=== PATIENT | male | born 1955 | race Caucasian/White ===

== ENCOUNTER 2018-04-07 01:01 | Observation (INO) ==
[2018-04-07 02:45] LABS: BASO# 0.07 X1000 (0.0-0.2); BASO% 0.7 % (0.0-0.8); EOS# 0.32 X1000 (0.0-0.7); EOS% 3.2 % (0.0-10.0); HEMATOCRIT 42.9 % (42.0-52.0); HEMOGLOBIN 14.1 g/dL (14.0-18.0); IMM GRAN# 0.06 X1000 (0.0-0.04); IMM GRAN% 0.6 % (0.0-0.5); LYMPH# 2.22 X1000 (1.2-3.4); LYMPH% 21.9 % (20.5-51.1); MCH 29.1 PG (27-31); MCHC 32.9 g/dL (33-37); MCV 88.6 FL (81-99); MONO# 0.74 X1000 (0.11-0.59); MONO% 7.3 % (1.7-9.3); MPV 9.3 FL (7.4-10.4); NEUT# 6.71 X1000 (1.4-6.5); NEUT% 66.3 % (42.2-75.2); PLT 245 X1000 (130-400); RBC 4.84 XMIL (4.7-6.1); RDW 13.7 % (11.5-14.5); WBC 10.12 X1000 (4.8-10.8)
[2018-04-07 03:07] LABS: AGAP 15; BUN 15 mg/dL (8-22); CALCIUM 8.4 mg/dL (8.8-10.2); CHLORIDE 102 mmol/L (98-107); COSMO 287; CREATININE 0.7 mg/dL (0.7-1.2); ESTIMATED GFR > 60; GLUCOSE 213 mg/dL (70-104); POTASSIUM 4.1 mmol/L (3.5-5.1); SODIUM 140 mmol/L (136-145); TCO2 23 mmol/L (25-35)
[2018-04-07] MEDS ORDERED: ASPIRIN PO ONE (03:21)
--- NOTE | 2018-04-07 03:23 | PROVIDER DOCUMENTATION ---
HPI-Neurological Disorder - General Chief Complaint: Stroke-Like Symptoms Stated Complaint: LEFT HAND/ARM "LIKE IT BELONGS TO SOMEONE ELSE" Time Seen by Provider: 04/07/18 01:40 Source: patient, family Allergies/Adverse Reactions: Patient Allergies Allergy/AdvReac Type Severity Reaction Status Date / Time No Known Allergies Allergy Verified 04/07/18 03:36 - History of Present Illness-Neuro Nature of Presenting Problem: 62 y/o M presents to the ED complaining of left arm weakness. States about 2 hours prior to arrival in the ED, at 2300, he noted that he has some mild incoordination with his left hand and then noted that it was difficult to lift normal items with his hand. States since the onset this has improved but has not resolved. No weakness or numbness in his leg or face, no gait changes. Takes 81mg ASA daily. No chest pain no headache. Review of Systems - Adult - REVIEW OF SYSTEMS - ADULT Constitutional: reports: no symptoms reported Eyes: reports: no symptoms reported Ears, Nose, Mouth & Throat: reports: no symptoms reported Cardiovascular: reports: no symptoms reported Respiratory: reports: no symptoms reported Gastrointestinal: reports: no symptoms reported Genitourinary: reports: no symptoms reported Musculoskeletal: reports: no symptoms reported Integumentary: reports: no symptoms reported Neurological: reports: other (weakness in left arm with incoordination of left arm) Psychiatric: reports: no symptoms reported Endocrine: reports: no symptoms reported Hematologic/Lymphatic: reports: no symptoms reported Allergic/Immunologic: reports: no symptoms reported All Other Systems: Reviewed and Negative Past History - Adult - PAST MEDICAL HISTORY-ADULT Review of Records: reports: Old Records Reviewed, Nursing Assessment Review, Medications Reviewed, Social history reviewed & non-contributory. Physical Exam- Neurological - Physical Exam-Neuro Initial Vital Signs Reviewed: Yes General Appearance: appears well, alert, no apparent distress Eye Exam: bilateral eye: normal inspection, PERRL, EOMI HENMT: normocephalic/atraumatic, moist mucous membranes, normal ENT inspection Head Injury: no evidence of injury Neck: non-tender, full range of motion, supple Respiratory: chest non-tender, lungs clear, normal breath sounds Cardiovascular: normal peripheral pulses, regular rate, rhythm, no edema, no JVD Abdominal Exam: non tender, soft Extremity: normal range of motion, non-tender, normal inspection, 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, grossly normal, abnormal cerebellar tests Integumentary: normal color, normal turgor, warm/dry Psych/Mental Status: normal mood/affect, normal thought content, normal thought process, oriented x 3 Progress - PLAN OF CARE/RESULTS Progress/Plan/Lab Results: Vital Signs - 8 hr 04/07/18 01:15 04/07/18 03:32 Temperature 97.8 F 98.3 F Pulse Rate 102 H 90 Respiratory Rate 20 16 Blood Pressure 142/60 104/98 O2 Sat by Pulse Oximetry 97 96 Laboratory Results - last 24 hr 04/07/18 04/07/18 04/07/18 02:31 02:31 02:31 WBC 10.12 RBC 4.84 Hgb 14.1 Hct 42.9 MCV 88.6 MCH 29.1 MCHC 32.9 L RDW Std Deviation 13.7 Plt Count 245 MPV 9.3 Immature Gran % (Auto) 0.6 H Neut % (Auto) 66.3 Lymph % (Auto) 21.9 Dickey % (Auto) 7.3 Eos % (Auto) 3.2 Baso % (Auto) 0.7 Immature Gran # (Auto) 0.06 H Neut # (Auto) 6.71 H Lymph # (Auto) 2.22 Dickey # (Auto) 0.74 H Eos # (Auto) 0.32 Baso # (Auto) 0.07 Sodium 140 Potassium 4.1 Chloride 102 Carbon Dioxide 23 L Anion Gap 15 BUN 15 Creatinine 0.7 Estimated GFR/1.73 m2 > 60 BUN/Creatinine Ratio 21 Glucose 213 H Calculated Osmolality 287 Calcium 8.4 L Troponin T < 0.010 Orders Category Date Time Status IV Insertion ORDERED Care 04/07/18 01:59 Active Nursing- Obtain EKG once Care 04/07/18 01:[address] HEAD W/O CONTRAST [CT] Stat Exams 04/07/18 01:20 Taken BASIC METABOLIC PANEL [CHEM] Stat Lab 04/07/18 02:31 Completed CBC WITH DIFF [HEME] Stat Lab 04/07/18 02:31 Completed TROPONIN T Stat Lab 04/07/18 02:31 Completed Aspirin Med 04/07/18 03:21 Discontinued 324 mg PO NOW ONE EKG [EKG] Stat Ther 04/07/18 01:59 Ordered left arm weakness and incoordination. improving since onset and only with slight pronator drift on exam. As improving and very mild deficit not a TPA candidate. will further evaluate for causes including but not limited to CVA, TIA, arrythmia, electrolyte imbalance Result Diagrams: 04/07/18 02:31 04/07/18 02:31 - REASSESSMENT Reassessment #1 Status: other (Feeling well, continued very slight pronator drift. improved as compared to initial exam. Likely CVA, as improving not a TPA candidate. ASA given and will admit. Discussed case with Dr. Shah who will see and admit pt.) - EKG 1 Time of EKG reading by physician:: 03:26 EKG Read and Signed by:: Liset Lu EKG Interpretation (*Must complete 3 of following elements*): Normal (Sinus Rhythm, rate 91, no acute st changes, normal axis and intervals) - CT/MRI 1 CT Study: Head (Per radiologist read: "no acute intracranial hemorrhage or process identified") Departure - Departure Date of Disposition Decision: 04/07/18 Time of Disposition Decision: 03:45 DIAGNOSIS: CVA (cerebral vascular accident) Qualifiers: CVA mechanism: unspecified Qualified Code(s): I63.9 - Cerebral infarction, unspecified Disposition: ADMITTED INPATIENT 09 Certified Medical Emergency: Emergent Condition: Fair Referrals and Follow-Ups: Celio Patel MD [Primary Care Provider] - - Critical Care Note This patient required my direct & personal management of CC.: No Attestation - Physician/ DANIELA Attestation Patient care was provided by Advanced Practice Provider:: No The physician spent face to face time with patient:: Yes Advanced Practice Provider documentation review:: Supervising physician onsite and consulted in the evaluation and care of this patient. The physician did have a face to face encounter with the patient.
[2018-04-07 04:30] LABS: HEMOGLOBIN A1C 8.1 % (4.8-6.0)
[2018-04-07 04:33] LABS: PROTIME 11.7 Seconds (11.0-16.0); PTT 28.2 Seconds (22.3-41.8)
[2018-04-07 05:22] LABS: INR 0.8
[2018-04-07] MEDS ORDERED: TYLENOL PO PRN (06:21)
[2018-04-07] MEDS ORDERED: ZOFRAN IV PRN (06:21)
[2018-04-07] MEDS ORDERED: DUONEB (A & A) INH PRN (06:24)
--- NOTE | 2018-04-07 06:32 | Diag Imaging Result Doc PS360 ---
CT HEAD W/O CONTRAST - 04/07/2018 INDICATION: stroke like symptoms. COMPARISON: None FINDINGS: The ventricles and sulci are normal in size and contour. No intracranial mass or hemorrhage. The skull is intact. The sinuses, mastoids, and middle ears are clear. IMPRESSION: Negative exam. This exam was performed using automated exposure control, adjustment of mA or kV according to patient size, and/or use of iterative reconstruction technique Electronically signed by Steven Graham 04/07/2018 6:30 AM
--- NOTE | 2018-04-07 07:03 | EKG Report ---
Test Performed on : 04/07/2018 03:26:35 AM Test Reason : SDA Blood Pressure : / mmHG Vent. Rate : 091 BPM Atrial Rate : 091 BPM P-R Int : 154 ms QRS Dur : 096 ms QT Int : 358 ms P-R-T Axes : 000 061 034 degrees QTc Int : 440 ms Normal sinus rhythm. Normal ECG No previous ECGs available Unconfirmed Result
--- NOTE | 2018-04-07 09:14 | Diag Imaging Result Doc PS360 ---
EXAM: CHEST-2 VIEWS HISTORY: Wheezing TECHNIQUE: Chest two views COMPARISON: None. FINDINGS: The lungs are well expanded. The heart is not enlarged. The vessels are not distended. There are no infiltrates. No pleural effusions. Prominent callus to a prior right eighth rib fracture. IMPRESSION: No acute abnormality. Electronically signed by Francis Henriquez 04/07/2018 9:12 AM
--- NOTE | 2018-04-07 09:21 | Diag Imaging Result Doc PS360 ---
EXAM: MRA BRAIN W/O CONTRAST HISTORY: TIA TECHNIQUE: MR angiography of the brain. MIP images obtained. COMPARISON: None. FINDINGS: There is normal flow within each distal internal carotid artery. Normal filling of the anterior and middle cerebral arteries. No occlusion or stenosis. Normal flow in the basilar artery with filling of both posterior cerebral arteries. No occlusion or stenosis. No aneurysm. IMPRESSION: Normal MR angiography of the [place]. Electronically signed by Francis Henriquez 04/07/2018 9:18 AM
--- NOTE | 2018-04-07 09:22 | Diag Imaging Result Doc PS360 ---
MRI BRAIN W/WO CONTRAST - 04/07/2018 INDICATION: TIA COMPARISON: None FINDINGS: There are numerous areas of abnormal restricted diffusion involving the right cerebral hemisphere, most notably in the cortex of the right frontal and parietal lobes but also some of the posterior deep cerebral white matter. No intracranial mass or hemorrhage. No abnormal contrast enhancement. No significant microvascular disease. IMPRESSION: Multifocal acute infarctions in the right cerebral hemisphere. These may be embolic or due to low flow situation, as the foci of abnormality are relatively distant and small in size. Electronically signed by Steven Graham 04/07/2018 9:20 AM
--- NOTE | 2018-04-07 09:46 | Diag Imaging Result Doc PS360 ---
MRA NECK W/CONT - 04/07/2018 INDICATION: TIA TECHNIQUE: Contrast-enhanced MR angiogram of the neck COMPARISON: None FINDINGS: There is moderate narrowing of both proximal internal carotid arteries. This is narrowed by about 40% on the right and 60% on the left. The common carotid arteries and carotid bulbs appear grossly patent. The vertebral basilar system is patent. No aneurysm or stenosis. IMPRESSION: Moderate stenosis of both proximal internal carotid arteries, left greater than right. Electronically signed by Steven Graham 04/07/2018 9:44 AM
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
[2018-04-07] MEDS: HUMALOG SUBQ SCH ×4 (11:11→21:04)
[2018-04-07] MEDS: NICODERM PATCH TD SCH (11:12)
[2018-04-07] MEDS: FISH OIL CONCENTRATE PO SCH (11:13)
--- NOTE | 2018-04-07 15:34 | CONSULTATION ---
DATE OF CONSULTATION: 04/07/2018 HISTORY OF PRESENT ILLNESS: Mr. Garcia is 62 years old, and he has had a stroke. Risk factors include hypertension, dyslipidemia, diabetes mellitus, peripheral vascular disease, and he continues to smoke cigarettes. He reports noticing an odd feeling in the left arm, clumsiness, and eventually he noted davy weakness in the left arm. This was approximately 24 hours ago. Symptoms were stable through the rest of the day and he went to bed. This morning he seems a little bit better. By noon time today, he was nearly back to normal. He did not notice left leg weakness, slurred speech, trouble swallowing. He saw "dots of light" in his vision and believes this was bilateral and something that has happened before the stroke yesterday. He did not notice focal loss of visual field, diplopia, other specific neurologic deficit. He had a little bit of headache, which has now resolved. He reports not missing any of his medicine doses. DIAGNOSTIC DATA: Workup here includes a brain MRI done with and without contrast showing evidence of multifocal acute small ischemic infarctions in the right hemisphere , mostly frontal and parietal, but some posterior. Brain MRA was unremarkable. Cervical MRA shows moderate stenosis in the internal carotid bilaterally, a little bit more on the left than the right. He has been afebrile here. Heart rate has ranged from 80s to 90s. Systolic blood pressures have ranged from 98 to 167. Blood sugars have been in the low 200s, and A1c was 8.1% . PHYSICAL EXAMINATION: On exam, Mr. Garcia is awake, alert, attentive, appropriate, and pleasant. Speech is not dysarthric. Language function is intact on bedside testing. Memory is good. Head and neck are unremarkable. Visual simon are full tested grossly by confrontational finger counting. Extraocular movements are full. Facial motility is good bilaterally. Gag is intact. Tongue is midline. He can hear. Shoulder shrug is good bilaterally. He has left hemiparesis grading 4+/5 at the deltoid and wrist extensor. I do not see definite weakness in the left leg. Tone is slightly increased in the left arm. He did better with right finger-to- nose than with the left. He did rapid alternating movements a little better with the right hand than the left. He reports equal pinprick appreciation over the palms. There was no extinction of simultaneously applied stimuli over the left or right. He has right [id number] amputation. He has a stocking pattern of sensory loss in the left leg. Proprioception is slightly diminished at the left great toe MTP joint. I did not test his gait. Left ankle reflex is absent and left knee reflex is 1+. Plantar response is silent on the left. IMPRESSION AND PLAN: Minimal left hemiparesis with relatively pure motor deficit. This is consistent with subcortical nondominant right hemisphere infarction as demonstrated on imaging. The multifocal nature raises question of embolic events, possibly cardiac, but also possibly right carotid source. I do not have any urgent suggestion now from a neurologic standpoint. I would continue following blood pressure and treat that cautiously if it becomes more elevated. I would continue aggressive management of blood sugar and lipids. I would continue aspirin and statin. If not done recently as outpatient, echocardiogram would be reasonable. I have strongly encouraged him to quit smoking cigarettes and to be aggressive with management of his risk factors. Thanks for asking Neurology to see Mr. Garcia. cc: MD JAM Cantu III
--- NOTE | 2018-04-07 16:37 | ECHO REPORT ---
ORDER DATE: 04/07/2018 INTERPRETING PHYSICIAN: Dr. Archer REQUESTING PHYSICIAN: CLINICAL INDICATIONS: This is a 62-year-old male with transient ischemic attack, hypertension. M-MODE MEASUREMENTS: Right ventricle: cm. Left ventricle end diastole: 4.9 cm. Left ventricle end systole: 3.1 cm. Posterior wall: 1.0 cm. Interventricular septum: 1.1 cm. Left atrium: 4.0 cm. Aortic root: 3.2 cm. SUMMARY OF 2-DIMENSIONAL IMAGIN. Left ventricular systolic function is normal. Ejection fraction is estimated at 55% to 60%. No wall motion abnormality noted. 2. The right ventricle appears to be normal. 3. Aortic valve shows sclerosis of the cusps without stenosis. 4. Mitral valve looks normal. Color flow mapping is unremarkable. 5. The aortic valve shows no regurgitation, either. 6. Pulmonic valve looks normal. Color flow mapping is unremarkable. 7. Tricuspid valve shows trace regurgitation. 8. Pulmonary pressure is normal. 9. Inferior vena cava is not dilated. 10.There is no pericardial effusion, mass or thrombus. CONCLUSIONS: In summary, this study shows: 1. Normal left ventricular systolic function. 2. Sclerosis of the aortic valve without any stenosis. 3. Unremarkable mitral, tricuspid, and pulmonic valves. 4. Diastolic function appears to be normal based on normal pulmonary venous flow, normal velocity of the mitral annulus up to 9 cm, and normal E/A ratio. Clinical correlation is recommended. cc: MD Avinash Murphy MD
--- NOTE | 2018-04-07 18:19 | Carotid Study ---
DATE: 04/07/2018 PROCEDURE: Carotid duplex imaging. REFERRING PHYSICIAN: Avinash Ron MD. INTERPRETING PHYSICIAN: Renaldo Riley MD. TECH: [place]. INDICATIONS: Carotid bruit. OBSERVED DATA RIGHT LEFT Brachial Blood Pressure Carotid Pulse Bruits: Carotid/Sub DIAGRAM OF ULTRASOUND IMAGING R L RIGHT INT EXT INT EXT LEFT Og (cm/s) Og (cm/s) Subclavian 112/0 Subclavian 59/4 CCA Proximal 62/25 CCA Proximal 126/32 CCA Distal 59/19 CCA Distal 132/32 Bulb 62/24 Bulb 118/32 ICA Proximal 100/31 ICA Proximal 102/37 ICA Mid 90/30 ICA Mid 121/48 ICA Distal 96/36 ICA Distal 103/47 ECA 133/37 ECA 266/40 Vertebral 63/18 Vertebral 52/18 ICA/CCA Ratio 1.6 ICA/CCA Ratio 0.9 % Stenosis 0-39 % Stenosis 40-59 PHYSICIAN INTERPRETATION: There is irregular calcific plaque at the take off of the right internal carotid artery. Similar appearing lesion at the take off of the left internal carotid artery. There is antegrade vertebral flow bilaterally. Interpretation is bilateral proximal internal carotid plaque disease producing a moderate stenosis on the left and only a mild stenosis on the right neither of which appear to be hemodynamically significant. cc: MD Avinash Baker MD
[2018-04-07] MEDS ORDERED: FISH OIL CONCENTRATE PO SCH (21:00)
[2018-04-07] MEDS ORDERED: LIPITOR PO SCH (21:00)
[2018-04-07] MEDS: GLUCOPHAGE PO SCH (21:01)
[2018-04-08] MEDS: HUMALOG SUBQ SCH (06:05)
[2018-04-08] MEDS: NICODERM PATCH TD SCH (06:05)
[2018-04-08 07:10] LABS: BASO# 0.05 X1000 (0.0-0.2); BASO% 0.6 % (0.0-0.8); EOS# 0.32 X1000 (0.0-0.7); EOS% 3.9 % (0.0-10.0); HEMATOCRIT 41.5 % (42.0-52.0); HEMOGLOBIN 13.5 g/dL (14.0-18.0); IMM GRAN# 0.03 X1000 (0.0-0.04); IMM GRAN% 0.4 % (0.0-0.5); LYMPH# 2.51 X1000 (1.2-3.4); LYMPH% 30.5 % (20.5-51.1); MCH 28.9 PG (27-31); MCHC 32.5 g/dL (33-37); MCV 88.9 FL (81-99); MONO# 0.66 X1000 (0.11-0.59); NEUT# 4.65 X1000 (1.4-6.5); NEUT% 56.6 % (42.2-75.2); PLT 205 X1000 (130-400); RBC 4.67 XMIL (4.7-6.1); RDW 13.5 % (11.5-14.5); WBC 8.22 X1000 (4.8-10.8)
[2018-04-08 07:21] VITALS: BP 126/68
[2018-04-08 07:37] LABS: AGAP 12; ALB/GLOB RATIO 1.7; ALBUMIN 3.8 g/dL (3.5-5.0); ALKALINE PHOSPHATASE 36 U/L (32-122); BUN 10 mg/dL (8-22); CALCIUM 8.7 mg/dL (8.8-10.2); CHLORIDE 102 mmol/L (98-107); COSMO 281; CREATININE 0.7 mg/dL (0.7-1.2); ESTIMATED GFR > 60; GLUCOSE 175 mg/dL (70-104); GOT 15 U/L (10-34); GPT 18 U/L (10-44); SODIUM 139 mmol/L (136-145); TCO2 25 mmol/L (25-35); TOTAL BILIRUBIN 0.44 mg/dL (0.20-1.00)
[2018-04-08] MEDS: FISH OIL CONCENTRATE PO SCH (08:41)
[2018-04-08] MEDS: GLUCOPHAGE PO SCH (08:41)
[2018-04-08] MEDS ORDERED: ASPIRIN PO SCH (09:00)
[2018-04-08] MEDS ORDERED: ACTOS PO SCH (09:00)
--- NOTE | 2018-04-08 19:42 | DISCHARGE SUMMARY ---
ADMISSION DATE: 04/07/2018 DISCHARGE DATE: 04/08/2018 DISCHARGE DIAGNOSIS: 1. 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 2. Type 2 diabetes. 3. Hyperlipidemia. 4. Hypertension. 5. Peripheral artery disease. 6. Nicotine dependence. 7. Obesity with a body mass index of 32.2. HOSPITAL COURSE: 62-year-old male admitted on 04/07/2018 reported that the day before admission in the evening around 10 p.m. he began having difficulty to control his left arm, he did report a slight headache at the time of this onset of symptoms, other than his motor deficit on his left arm he denied any other symptoms besides his headaches. No visual disturbances, no speech disturbances, no chest pain or shortness of breath, apparently also this patient has been having a chronic cough which is likely related to his smoking history but the cough has not worsened. He denies any other associated symptoms. 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 CT scan in the emergency department showed no acute intracranial abnormality. EKG with normal sinus rhythm. He was admitted and we requested a brain MRI that showed multifocal acute infarctions in the right cerebral hemisphere. MRI of the neck showed a moderate stenosis with both proximal internal carotid arteries the left greater than right 60% and 40%. Echocardiogram Doppler of the carotid showed that there is an irregular calcified plate at the takeoff of the right internal carotid similar appearing lesion at the takeoff of the left internal carotid artery. There is antegrade flow bilaterally. Proximal internal carotid plaque disease producing a moderate stenosis on the left and only mild stenosis on the right neither of which appear to be hemodynamically significant. Echocardiogram showed normal left ventricular systolic function and did not show any pericardial effusion, mass or thrombus, showed also sclerosis of the aortic valve without any stenosis. Neurology Department evaluated this patient. They do not have any urgent suggestion from a neurological standpoint but they did recommend to treat the blood pressure, continue aggressive management of blood sugar and lipids, continue with aspirin and statin and to perform an echocardiogram which we did. Also he has strongly recommended to this patient to quit smoking cigarettes and to have an aggressive management of his risk factors. This patient was feeling good today, mild weakness at the level of the left upper extremity. He does want to go home, he does not have anymore associated symptoms, I talked to him in length about his risk factors about a strict followup with his primary care doctor, his was at the bedside, they seem to understand and I told him that if he does not take care of his risk factor the possibility of having another stroke is high. He will be discharged today and strict followup by his primary care doctor, control of his risk factors as well. Vital signs: Temperature 97.3, pulse 81, respiratory rate 18, blood pressure 126/68, oxygen saturation 96 on room air. HEENT: Head normocephalic. No trauma. PERRLA. Neck: Supple. No JVD. Central trachea. Chest: Clear to auscultation. No wheezing. No rales. Cardiovascular: RRR. Abdomen: Soft, nontender, nondistended. No hepatosplenomegaly. Extremities: He does have a right BKA , no clubbing, no cyanosis. Neurological: This patient is alert and oriented x3. He does have some mild left upper extremity weakness around 4/5. LABORATORY: WBC 8.2, hemoglobin 13.5, hematocrit 41.5, platelets 205,000, sodium 139, potassium 4, chloride 102, bicarbonate 25, BUN 10, creatinine 0.7, glucose 175, calcium 8.7, AST 15, ALT 18, alkaline phosphatase 36. I suggested to the patient to follow up with a ethnographic materials conservator and take his medications as prescribed. Follow up with his primary care doctor this coming week to adjust his blood pressure and diabetic medications. DISCHARGE MEDICATIONS: Actos 15 mg p.o. daily, metformin 1000 mg p.o. b.i.d., Lovaza 2 g p.o. at bedtime, 1 g p.o. in the morning, atorvastatin 40 mg p.o. at bedtime, aspirin 81 mg p.o. daily, losartan/hydrochlorothiazide 100 mg p.o. daily, nicotine patch 21 mg transdermal daily as needed. TIME SPENT: 30+ minutes. cc: MD JAM Sweet
== END 2018-04-08 11:18 | disposition home or self-care (01) ==
LOC: EDIPHOLD 01:01 → ED 01:01 → SUATTDRO 06:09 → 3N 07:17
PROVIDERS: ATTEND Internal Medicine
CPT/HCPCS: 70450; 70544; 70548; 70553; 71020; 71046; 80048; 80053; 80061; 82948; 83036; 83721; 84484; 85025; 85610; 85730; 93005; 93306; 93880; 94760; 94761; 99285; A9270; A9579; C8929; J1815; Q9957; XXXXX